=== PATIENT | male | born 1945 | race Caucasian/White ===

== ENCOUNTER 2018-01-28 08:26 | Emergency (ER) | payer OTHER ==
[~2018-01-28] VITALS: Ht 185.4 cm; Wt 88.5 kg
[2018-01-28] MEDS ORDERED: ZANTAC 150MG T150 MG PO (08:31)
[2018-01-28] MEDS ORDERED: FISH OIL 1,001000 M2 PO (08:31)
[2018-01-28] MEDS ORDERED: ASPIR 8181 MG PO (08:31)
[2018-01-28 08:48] LABS: ABSOLUTE LYMPHOCYTES 1.3 thou/uL (0.8-5.3); ABSOLUTE MONOCYTES 0.7 thou/uL (0.0-1.2); BASOPHILS 0.4 %; EOSINOPHILS 0.5 %; HEMATOCRIT 47.3 % (42.0-52.0); LYMPHOCYTES 21.5 %; MCH 30.7 pg (26.0-34.0); MCHC 33.8 g/dL (28.0-37.0); MCV 90.9 fL (80.0-100.0); MONOCYTES 11.4 %; NUCLEATED RBCS 0 /100WBC; PLATELET COUNT* 168 thou/uL (150-400); POLYS 66.2 %; RDW-CV 13.6 % (10.5-14.5); WBC 6.1 thou/uL (4.0-11.0)
[2018-01-28 08:55] LABS: ANION GAP 6 mmol/L (7-16); BUN 20 mg/dL (7-18); CALCIUM 9.5 mg/dL (8.5-10.1); CHLORIDE 102 mmol/L (98-107); CO2 32 mmol/L (21-32); CREATININE 1.2 mg/dL (0.6-1.3); GLUCOSE 105 mg/dL (70-99); POTASSIUM 4.3 mmol/L (3.5-5.1); SODIUM 140 mmol/L (136-145)
[2018-01-28 09:02] LABS: APTT 28.8 Seconds (25.0-31.3); PROTIME 10.1 Seconds (9.20-11.50)
[2018-01-28 09:06] LABS: ALBUMIN 4.1 g/dL (3.4-5.0); ALKALINE PHOSPHATASE 52 U/L (46-116); NT-PRO BRAIN NAT PEPTIDE 78 pg/mL (<300); SGOT 33 U/L (15-37); SGPT 49 U/L (30-65); TOTAL BILIRUBIN 0.7 mg/dL (<0.1-1.0); TOTAL PROTEIN 8.8 g/dL (6.4-8.2); TROPONIN-I LEVEL <0.06 ng/mL (<0.06)
[2018-01-28 09:15] VITALS: BP 125/66
--- NOTE | 2018-01-28 15:51 | EKG ---
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
== END 2018-01-28 09:20 | disposition home or self-care (01) ==
LOC: M.ERS 08:26
PROVIDERS: Family Medicine
DX: T18.120A Food in esophagus causing compression of trachea, initial encounter (principal); Z88.8 Allergy status to other drugs, medicaments and biological substances; X58.XXXA Exposure to other specified factors, initial encounter; Y93.89 Activity, other specified; Y92.89 Other specified places as the place of occurrence of the external cause; Y99.8 Other external cause status